=== PATIENT | female | born 1955 | race Caucasian/White ===

== ENCOUNTER → 2017-01-08 | Outpatient (CLI) | payer OTHER ==
[~2017-01-08] MED LIST: ACET-1757 PO; AMLO2.5T2 PO; VALS1TAB28 PO
== END | disposition home or self-care (01) ==
LOC: CFH 09:07
PROVIDERS: ATTEND Family Medicine
DX: Z12.31 Encounter for screening mammogram for malignant neoplasm of breast (principal)
CPT/HCPCS: 77063; G0202

== ENCOUNTER → 2018-09-19 | Outpatient (CLI) | payer OTHER | END | disposition home or self-care (01) | LOC: CFH 07:31 | PROVIDERS: ATTEND Family Medicine | DX: M47.893 Other spondylosis, cervicothoracic region (principal); M48.03 Spinal stenosis, cervicothoracic region | CPT/HCPCS: 72141 ==

== ENCOUNTER → 2018-11-30 | Outpatient (CLI) | payer OTHER | END | disposition home or self-care (01) | LOC: CFH 08:34 → EDSTATUS 09:00 | PROVIDERS: ATTEND Family Medicine | DX: Z12.31 Encounter for screening mammogram for malignant neoplasm of breast (principal); Z98.82 Breast implant status | CPT/HCPCS: 77067 ==

== ENCOUNTER → 2021-05-22 | Outpatient (CLI) | payer MEDICARE, OTHER ==
[~2021-05-22] MED LIST changes: -ACET-1757 PO; +ACET-2065 PO; -VALS1TAB28 PO; +VALS1TAB29 PO
== END | disposition home or self-care (01) ==
LOC: CFH 07:49
PROVIDERS: ATTEND Internal Medicine Cardiovascular Disease
DX: Z13.6 Encounter for screening for cardiovascular disorders (principal); I10 Essential (primary) hypertension; I77.810 Thoracic aortic ectasia
CPT/HCPCS: 75571

== ENCOUNTER 2021-07-08 07:43 | Outpatient (CLI) | payer MEDICARE, OTHER | END 2021-07-08 23:59 | disposition home or self-care (01) | LOC: CVU 07:43 | PROVIDERS: ATTEND Internal Medicine Cardiovascular Disease | DX: I08.1 Rheumatic disorders of both mitral and tricuspid valves (principal); I11.9 Hypertensive heart disease without heart failure | CPT/HCPCS: 93306 ==

== ENCOUNTER 2021-07-22 11:36 | Observation (INO) | payer MEDICARE, OTHER ==
[~2021-07-22] VITALS: Ht 170.2 cm; Wt 68.6 kg
[2021-07-22] MEDS ORDERED: CEFAZOLIN PMX 1GM/50ML 50 ML IVPB ONE (13:30)
[2021-07-22] MEDS ORDERED: EPIN0.3P3 IM (13:31)
[2021-07-22] MEDS ORDERED: TIZA4CAP PO (13:31)
[2021-07-22] MEDS ORDERED: ROSU10TA2 PO (13:31)
[2021-07-22] MEDS ORDERED: VALS1TAB26 PO (13:31)
[2021-07-22 13:32] VITALS: BP 142/77
[2021-07-22 13:44] LABS: BASOPHILS % (AUTO) 1 % (0-1); EOSINOPHILS % (AUTO) 1 % (1-7); LYMPHOCYTES % (AUTO) 26 % (22-44); MEAN CORPUSCULAR HEMOGLOBIN 28.6 pg (27.0-34.8); MEAN CORPUSCULAR HGB CONC 34.7 g/dL (32.4-35.8); MEAN PLATELET VOLUME 7.3 fL (7.4-10.4); MONOCYTES % (AUTO) 5 % (2-9); NEUTROPHILS % (AUTO) 67 % (42-75); PLATELET COUNT 254 x10^3/uL (130-400); RED BLOOD COUNT 5.46 x10^6/uL (3.82-5.3); RED CELL DISTRIBUTION WIDTH 13.5 % (9.6-15.2)
[2021-07-22] MEDS ORDERED: ASPI81TA45 PO (13:44)
[2021-07-22 13:55] LABS: ANION GAP 3 mmol/L (5-15); CALCIUM 9.5 mg/dL (8.5-10.1); CHLORIDE 107 mmol/L (98-107); CREATININE 0.83 mg/dL (0.55-1.02); INTERNATIONAL NORMALIZED RATIO 1.11 (0.93-1.1); PROTHROMBIN TIME 11.8 Seconds (9.6-11.5)
[2021-07-22] MEDS ORDERED: LIDOCAINE 2%, 20ML ONE (14:22)
[2021-07-22] MEDS ORDERED: FENTANYL PF 100 MCG/2ML ONE (14:22)
[2021-07-22] MEDS ORDERED: MIDAZOLAM 1 MG/ML, 5ML ONE (14:22)
[2021-07-22] MEDS ORDERED: CEFAZOLIN PMX 1GM/50ML 50 ML ONE (14:22)
[2021-07-22] MEDS ORDERED: CEFAZOLIN 1,000 MG ONE (14:22)
[2021-07-22] MEDS ORDERED: DIPHENHYDRAMINE 50 MG/ML, 1ML ONE (15:05)
[2021-07-22] MEDS ORDERED: ZOLPIDEM 5MG TABLET PO PRN (16:00)
[2021-07-22] MEDS ORDERED: HOLD MEDICATION MC PRN (16:00)
[2021-07-22] MEDS: SODIUM CHLORIDE 0.9% 1,000 ML IV SCH ×3 (16:00→21:44)
[2021-07-22] MEDS ORDERED: HYDROcodone/APAP 5/325 TABLET PO PRN (16:00)
[2021-07-22 16:05] VITALS: BP 118/76
[2021-07-22] MEDS: ACETAMINOPHEN 325 MG TABLET PO PRN ×2 (16:50→21:46)
[2021-07-22 19:13] VITALS: BP 116/75
[2021-07-22] MEDS: SODIUM CHLORIDE FLUSH 10ML SYR IVF SCH (21:47)
[2021-07-22] MEDS: CEFAZOLIN PMX 1GM/50ML 50 ML IVPB SCH (23:32)
[2021-07-23 02:14] VITALS: BP 122/84
[2021-07-23 06:20] VITALS: BP 119/81
[2021-07-23] MEDS: ACETAMINOPHEN 325 MG TABLET PO PRN (06:34)
[2021-07-23] MEDS: CEFAZOLIN PMX 1GM/50ML 50 ML IVPB SCH (06:35)
[2021-07-23] MEDS: SODIUM CHLORIDE FLUSH 10ML SYR IVF SCH (08:26)
== END 2021-07-23 11:45 | disposition home or self-care (01) ==
LOC: CACL 11:36 → ORIP 15:40 → 5SO 17:05
PROVIDERS: ADMIT Internal Medicine Cardiovascular Disease; ATTEND Internal Medicine Cardiovascular Disease
DX: I49.5 Sick sinus syndrome (principal); I25.10 Atherosclerotic heart disease of native coronary artery without angina pectoris; I10 Essential (primary) hypertension; E78.2 Mixed hyperlipidemia; Z79.899 Other long term (current) drug therapy
CPT/HCPCS: 33208; 36415; 71045; 71046; 80048; 85025; 85610; 93005; 96365; 96366; 99156; 99157; C1779; C1785; C1892; G0378; J0690; J1200; J2250; J3010; J3490